=== PATIENT | male | born 1995 | race Caucasian/White ===

== ENCOUNTER 2018-03-28 19:54 | Emergency (ER) | payer OTHER ==
[2018-03-28 21:56] LABS: ABS Basophils 0 10^3/ul (0-0.2); ABS Eosinophils 0 10^3/ul (0-0.6); ABS Lymphocytes 1.1 10^3/ul (1.0-4.8); ABS Monocytes 0.2 10^3/ul (0-0.8); ABS Neutrophils 5.4 10^3/ul (1.5-7.7); ABS Nucleated RBC 0 10^3/ul; Eosinophil % 0.5 %; Hematocrit 42 % (42-52); Hemoglobin 14.9 g/dl (14.0-18.0); Lymphocyte % 16.5 %; Mean Corpuscular HGB Conc 35 g/dl (31-36); Mean Corpuscular Hemoglobin 30 pg (27-31); Mean Corpuscular Volume 85 fL (80-94); Mean Platelet Volume 7.5 fL (7.4-10.4); Nucleated Red Blood Cells % 0.1; Platelet Count 205 10^3/ul (150-450); Red Blood Count 4.94 10^6/ul (4.00-5.40); Red Cell Distribution Width 13 % (10.5-15); White Blood Count 6.8 10^3/ul (3.5-10.8)
[2018-03-28] MEDS ORDERED: Lidocaine 2% VISCOUS* 15 ML UDC PO ONE (22:09)
[2018-03-28] MEDS ORDERED: Al Hydrox/Mg Hydrox/Simet LIQ* 30 ML UDC PO ONE (22:09)
[2018-03-28 22:15] LABS: EGFR Non-African American 90.2 (>60)
[2018-03-28] MEDS ORDERED: Ibuprofen TAB* 600 MG PO ONE (23:16)
--- NOTE | 2018-03-28 23:16 | ED ---
HPI Chest Pain - HPI Summary HPI Summary: Patient complains of left side chest pain 1 week. Just pain described as progressive, constant for the past few days accompanied by epigastric pain. Patient was evaluated by primary care 2 days ago and placed on prednisone for possible pericarditis. Patient has had 3 doses of prednisone without improvement. Denies prior history of chest pain, prior history of cardiac disease. Pain improves with nothing, worsens with nothing. Denies fever, cough , sore throat, SOB, N/V/V, change in urine, change in BM. History is none. Negative smoker, denies illegal or illegal stimulants - History of Current Complaint Chief Complaint: EDChestPainROMI Time Seen by Provider: 03/28/18 21:35 Hx Obtained From: Patient Onset/Duration: Started Days Ago Timing: Constant Initial Severity: Mild Current Severity: Mild Pain Intensity: 3 Pain Scale Used: 0-10 Numeric Chest Pain Location: Discrete at:, Left Anterior Chest Pain Radiates: No Character: Sharp/Stabbing Aggravating Factor(s): Nothing Alleviating Factor(s): Nothing Associated Signs and Symptoms: Positive: Chest Pain - Allergy/Home Medications Allergies/Adverse Reactions: Allergies Allergy/AdvReac Type Severity Reaction Status Date / Time No Known Allergies Allergy Verified 03/28/18 20:06 PMH/Surg Hx/FS Hx/Imm Hx Endocrine/Hematology History: Denies: Hx Anticoagulant Therapy Cardiovascular History: Denies: Hx Cardiac Arrest History: Denies: Hx Dialysis Neurological History: Denies: Hx CVA Psychiatric History: Denies: Hx Autism Infectious Disease History: No Infectious Disease History: Denies: Traveled Outside the [place] in Last 30 Days - Family History Known Family History: Positive: Cardiac Disease - Social History Alcohol Use: Occasionally Substance Use Type: Reports: None Smoking Status (MU): Unknown if Ever Smoked Review of Systems Constitutional: Negative Eyes: Negative ENT: Negative Positive: Chest Pain Respiratory: Negative Gastrointestinal: Negative Genitourinary: Negative Musculoskeletal: Negative Skin: Negative Neurological: Negative Psychological: Normal All Other Systems Reviewed And Are Negative: Yes Physical Exam - Summary Physical Exam Summary: Tenderness epigastrically. Abdominal exam otherwise unremarkable. Chest pain not reproducible. Nontender to palpation. Pain does not increase or decrease with sitting forward. No increase in pain with use of pectoral muscles or movement of arms. Vital Signs On Initial Exam: Initial Vitals Temp Pulse Resp BP Pulse Ox 98.4 F 72 18 138/74 98 03/28/18 20:02 03/28/18 20:02 03/28/18 20:02 03/28/18 20:02 03/28/18 20:02 Diagnostics - Vital Signs Vital Signs Temp Pulse Resp BP Pulse Ox 03/28/18 22:37 72 17 132/83 97 03/28/18 22:07 70 12 141/88 95 03/28/18 22:00 80 16 97 03/28/18 21:37 71 146/81 97 03/28/18 20:02 98.4 F 72 18 138/74 98 - Laboratory Lab Results: Lab Results 03/28/18 03/28/18 Range/Units 21:43 21:43 WBC 6.8 (3.5-10.8) 10^3/ul RBC 4.94 (4.00-5.40) 10^6/ul Hgb 14.9 (14.0-18.0) g/dl Hct 42 (42-52) % MCV 85 (80-94) fL MCH 30 (27-31) pg MCHC 35 (31-36) g/dl RDW 13 (10.5-15) % Plt Count 205 (150-450) 10^3/ul MPV 7.5 (7.4-10.4) fL Neut % (Auto) 79.5 % Lymph % (Auto) 16.5 % [place] % (Auto) 3.0 % Eos % (Auto) 0.5 % Baso % (Auto) 0.5 % Absolute Neuts (auto) 5.4 (1.5-7.7) 10^3/ul Absolute Lymphs (auto) 1.1 (1.0-4.8) 10^3/ul Absolute Monos (auto) 0.2 (0-0.8) 10^3/ul Absolute Eos (auto) 0 (0-0.6) 10^3/ul Absolute Basos (auto) 0 (0-0.2) 10^3/ul Absolute Nucleated RBC 0 10^3/ul Nucleated RBC % 0.1 ESR 8 (0-14) mm/Hr Sodium 138 (135-145) mmol/L Potassium 3.8 (3.5-5.0) mmol/L Chloride 105 (101-111) mmol/L Carbon Dioxide 29 (22-32) mmol/L Anion Gap 4 (2-11) mmol/L BUN 16 (6-24) mg/dL Creatinine 1.04 (0.67-1.17) mg/dL Est GFR ( Amer) 109.1 (>60) Est GFR (Non-Af Amer) 90.2 (>60) BUN/Creatinine Ratio 15.4 (8-20) Glucose 123 H (70-100) mg/dL Calcium 9.5 (8.6-10.3) mg/dL Total Bilirubin 0.40 (0.2-1.0) mg/dL AST 12 L (13-39) U/L ALT 11 (7-52) U/L Alkaline Phosphatase 46 (34-104) U/L Troponin I 0.00 (<0.04) ng/mL C-Reactive Protein < 1.00 (<8.01) mg/L Total Protein 6.9 (6.4-8.9) g/dL Albumin 4.4 (3.2-5.2) g/dL Globulin 2.5 (2-4) g/dL Albumin/Globulin Ratio 1.8 (1-3) Lipase 29 (11.0-82.0) U/L Result Diagrams: 03/28/18 21:43 03/28/18 21:43 Lab Statement: Any lab studies that have been ordered have been reviewed, and results considered in the medical decision making process. Chest Pain Course/Dx - Course Course Of Treatment: Patient complains of left side chest pain 1 week. Just pain described as progressive, constant for the past few days accompanied by epigastric pain. Patient was evaluated by primary care 2 days ago and placed on prednisone for possible pericarditis. Patient has had 3 doses of prednisone without improvement. Denies prior history of chest pain, prior history of cardiac disease. Pain improves with nothing, worsens with nothing. Denies fever, cough, sore throat, SOB, N/V/V, change in urine, change in BM. History is none. Negative smoker, denies illegal or illegal stimulants. Physical exam: Tenderness epigastrically. Abdominal exam otherwise unremarkable. Chest pain not reproducible. Nontender to palpation. Pain does not increase or decrease with sitting forward. No increase in pain with use of pectoral muscles or movement of arms. Vital signs within normal limits. EKG unremarkable. Chest x -ray unremarkable. Labs unremarkable. Patient states significant pain improvement with GI cocktail. Possible gastritis. - Diagnoses Provider Diagnoses: Atypical chest pain Discharge - Sign-Out/Discharge Documenting (check all that apply): Patient Departure - Discharge Plan Condition: Stable Disposition: HOME Prescriptions: Omeprazole CAP* [Prilosec CAP* 20 MG] 20 mg PO DAILY 30 Days #30 cap Patient Education Materials: Chest Pain (ED) Referrals: No Primary Care Phys,NOPCP [Primary Care Provider] - [facility] [Outside] Additional Instructions: Take prednisone with omeprazole. If symptoms improve, continue with omeprazole. If symptoms do not improve take ibuprofen 600 mg 3 times a day for 10 days and then taper down by 200 mg each week over the next 3 weeks. Follow-up with primary care. Return to the ED for any new or worsening symptoms - Billing Disposition and Condition Condition: STABLE Disposition: Home
[2018-03-28] MEDS ORDERED: Omeprazole CAP* 20 MG PO ONE (23:24)
[2018-03-28] MEDS ORDERED: Omeprazole CAP* 20 MG ONE (23:26)
[2018-03-28 23:33] VITALS: BP 124/78
== END 2018-03-28 23:32 | disposition home or self-care (01) ==
LOC: ED 19:54
DX: R07.89 Other chest pain (principal)
CPT/HCPCS: 36415; 71046; 80053; 83690; 84484; 85025; 85652; 86140; 93005; 99282; A9270-GY

== ENCOUNTER 2018-03-30 16:24 | Emergency (ER) | payer OTHER ==
[2018-03-30] MEDS ORDERED: Lidocaine 2% VISCOUS* 15 ML UDC PO ONE (21:44)
[2018-03-30] MEDS ORDERED: Al Hydrox/Mg Hydrox/Simet LIQ* 30 ML UDC PO ONE (21:45)
[2018-03-30] MEDS ORDERED: Ibuprofen TAB* 600 MG PO ONE (23:14)
[2018-03-30 23:17] LABS: ABS Basophils 0.1 10^3/ul (0-0.2); ABS Eosinophils 0.1 10^3/ul (0-0.6); ABS Lymphocytes 2.8 10^3/ul (1.0-4.8); ABS Monocytes 0.7 10^3/ul (0-0.8); ABS Neutrophils 3.4 10^3/ul (1.5-7.7); ABS Nucleated RBC 0 10^3/ul; Eosinophil % 1.6 %; Hematocrit 42 % (42-52); Hemoglobin 14.7 g/dl (14.0-18.0); Mean Corpuscular HGB Conc 35 g/dl (31-36); Mean Corpuscular Hemoglobin 30 pg (27-31); Mean Corpuscular Volume 85 fL (80-94); Mean Platelet Volume 7.3 fL (7.4-10.4); Nucleated Red Blood Cells % 0; Platelet Count 202 10^3/ul (150-450); Red Blood Count 4.93 10^6/ul (4.00-5.40); Red Cell Distribution Width 13 % (10.5-15); White Blood Count 7.1 10^3/ul (3.5-10.8)
[2018-03-30 23:18] LABS: EGFR Non-African American 81.1 (>60)
[2018-03-31] MEDS ORDERED: Ibuprofen TAB* 600 MG PO ONE (01:01)
[2018-03-31] MEDS ORDERED: Azithromycin TAB* 250 MG PO ONE (01:04)
--- NOTE | 2018-03-31 01:04 | ED ---
HPI Chest Pain - HPI Summary HPI Summary: Patient states history of left-sided chest pain 1 week. Seen here 2 days ago for same. Chest pain described as constant baseline with occasional intense spikes up to 8/10, not related to eating or exertion. Denies increase in Baseline stress. Associated symptoms are lightheadedness and nausea and burping and numbness and tingling with spikes of pain. Patient has been taking prednisone and omeprazole for past 2 days as prescribed on prior visit with no relief in symptoms. Patient states symptoms of been progressive and are worse today. Denies fever, cough, sore throat,/D, abdominal pain, change in urine, change in BM. Medical history is none. - History of Current Complaint Chief Complaint: EDChestWallPain Time Seen by Provider: 03/30/18 21:27 Hx Obtained From: Patient Onset/Duration: Started Days Ago Timing: Intermittent Initial Severity: Moderate Current Severity: Moderate Pain Intensity: 4 Pain Scale Used: 0-10 Numeric Chest Pain Location: Discrete at:, Left Anterior Chest Pain Radiates: No Character: Sharp/Stabbing Aggravating Factor(s): Nothing Alleviating Factor(s): Nothing - Allergy/Home Medications Allergies/Adverse Reactions: Allergies Allergy/AdvReac Type Severity Reaction Status Date / Time No Known Allergies Allergy Verified 03/30/18 16:51 PMH/Surg Hx/FS Hx/Imm Hx Endocrine/Hematology History: Denies: Hx Anticoagulant Therapy Cardiovascular History: Denies: Hx Cardiac Arrest History: Denies: Hx Dialysis Neurological History: Denies: Hx CVA Psychiatric History: Denies: Hx Autism - Immunization History Immunizations Up to Date: Yes Infectious Disease History: No Infectious Disease History: Denies: Traveled Outside the [place] in Last 30 Days - Family History Known Family History: Positive: Cardiac Disease - Social History Alcohol Use: Occasionally Substance Use Type: Reports: None Smoking Status (MU): Never Smoked Tobacco Review of Systems Constitutional: Negative Eyes: Negative ENT: Negative Positive: Chest Pain Respiratory: Negative Gastrointestinal: Negative Genitourinary: Negative Musculoskeletal: Negative Skin: Negative Neurological: Negative Psychological: Normal All Other Systems Reviewed And Are Negative: Yes Physical Exam - Summary Physical Exam Summary: Chest pain not reproducible. Triage Information Reviewed: Yes Vital Signs On Initial Exam: Initial Vitals Temp Pulse Resp BP Pulse Ox 98.2 F 74 20 140/99 99 03/30/18 16:30 03/30/18 16:30 03/30/18 16:30 03/30/18 16:30 03/30/18 16:30 Vital Signs Reviewed: Yes Appearance: Positive: Well-Appearing Skin: Positive: Warm Head/Face: Positive: Normal Head/Face Inspection Eyes: Positive: Normal Neck: Positive: Supple Respiratory/Lung Sounds: Positive: Clear to Auscultation Cardiovascular: Positive: Normal Abdomen Description: Positive: Nontender Musculoskeletal: Positive: Normal Neurological: Positive: Normal Psychiatric: Positive: Normal AVPU Assessment: Alert - [place] Coma Scale Best Eye Response: 4 - Spontaneous Best Motor Response: 6 - Obeys Commands Best Verbal Response: 5 - Oriented Coma Scale Total: 15 Diagnostics - Vital Signs Vital Signs Temp Pulse Resp BP Pulse Ox 03/30/18 18:50 97.4 F 76 16 144/82 97 03/30/18 16:30 98.2 F 74 20 140/99 99 - Laboratory Lab Results: Lab Results 03/30/18 03/30/18 03/30/18 Range/Units 22:48 22:48 22:48 WBC 7.1 (3.5-10.8) 10^3/ul RBC 4.93 (4.00-5.40) 10^6/ul Hgb 14.7 (14.0-18.0) g/dl Hct 42 (42-52) % MCV 85 (80-94) fL MCH 30 (27-31) pg MCHC 35 (31-36) g/dl RDW 13 (10.5-15) % Plt Count 202 (150-450) 10^3/ul MPV 7.3 L (7.4-10.4) fL Neut % (Auto) 48.2 % Lymph % (Auto) 40.0 % [place] % (Auto) 9.4 % Eos % (Auto) 1.6 % Baso % (Auto) 0.8 % Absolute Neuts (auto) 3.4 (1.5-7.7) 10^3/ul Absolute Lymphs (auto) 2.8 (1.0-4.8) 10^3/ul Absolute Monos (auto) 0.7 (0-0.8) 10^3/ul Absolute Eos (auto) 0.1 (0-0.6) 10^3/ul Absolute Basos (auto) 0.1 (0-0.2) 10^3/ul Absolute Nucleated RBC 0 10^3/ul Nucleated RBC % 0 D-Dimer, Quantitative < 200 (Less Than 230) ng/mL Sodium 139 (135-145) mmol/L Potassium 3.2 L (3.5-5.0) mmol/L Chloride 103 (101-111) mmol/L Carbon Dioxide 29 (22-32) mmol/L Anion Gap 7 (2-11) mmol/L BUN 14 (6-24) mg/dL Creatinine 1.14 (0.67-1.17) mg/dL Est GFR ( Amer) 98.1 (>60) Est GFR (Non-Af Amer) 81.1 (>60) BUN/Creatinine Ratio 12.3 (8-20) Glucose 103 H (70-100) mg/dL Calcium 9.5 (8.6-10.3) mg/dL Total Bilirubin 0.50 (0.2-1.0) mg/dL AST 12 L (13-39) U/L ALT 11 (7-52) U/L Alkaline Phosphatase 45 (34-104) U/L Troponin I 0.00 (<0.04) ng/mL C-Reactive Protein < 1.00 (<8.01) mg/L Total Protein 6.7 (6.4-8.9) g/dL Albumin 4.3 (3.2-5.2) g/dL Globulin 2.4 (2-4) g/dL Albumin/Globulin Ratio 1.8 (1-3) Result Diagrams: 03/30/18 22:48 03/30/18 22:48 Lab Statement: Any lab studies that have been ordered have been reviewed, and results considered in the medical decision making process. Chest Pain Course/Dx - Course Course Of Treatment: Patient states history of left-sided chest pain 1 week. Seen here 2 days ago for same. Chest pain described as constant baseline with occasional intense spikes up to 8/10, not related to eating or exertion. Denies increase in Baseline stress. Associated symptoms are lightheadedness and nausea and burping and numbness and tingling with spikes of pain. Patient has been taking prednisone and omeprazole for past 2 days as prescribed on prior visit with no relief in symptoms. Patient states symptoms of been progressive and are worse today. Denies fever, cough, sore throat,/D, abdominal pain, change in urine, change in BM. Medical history is none. Chest pain not reproducible. Vital signs within normal limits and stable. Chest x- ray unremarkable on prior visit. EKG unremarkable on prior visit. Cardiac troponins unremarkable on prior visit. Labs today unremarkable. D-dimer negative. Patient improved significantly with ibuprofen 800 mg. Patient advised to take 800 mg ibuprofen 3 times a day for 4 days. Continue take omeprazole as prescribed on prior visit for protection against gastric irritation from ibuprofen. Likely diagnosis pleurisy. - Diagnoses Provider Diagnoses: Atypical chest pain Discharge - Sign-Out/Discharge Documenting (check all that apply): Patient Departure - Discharge Plan Condition: Stable Disposition: HOME Prescriptions: Azithromycin 250 mg PO DAILY 4 Days #4 tablet Sucralfate TAB* [Carafate*] 1 gm PO BID 20 Days #40 tab Patient Education Materials: Pleurisy (ED) Forms: *School Release Referrals: No Primary Care Phys,NOPCP [Primary Care Provider] - [facility] [Outside] Additional Instructions: Take 800 mg ibuprofen 3 times a day. Take omeprazole daily before meals. Take sucralafate 1 hr before meals if you start to have stomach pain. Take antibiotics as directed. Follow up with primary care. Return to the ED for any new or worsening symptoms. - Billing Disposition and Condition Condition: STABLE Disposition: Home
[2018-03-31 01:24] VITALS: BP 138/84
== END 2018-03-31 01:23 | disposition home or self-care (01) ==
LOC: ED 16:24
DX: R07.89 Other chest pain (principal)
CPT/HCPCS: 36415; 80053; 84484; 85025; 85379; 86140; 93005; 99283; A9270-GY